=== PATIENT | female | born 1990 | race Caucasian/White ===

== ENCOUNTER 2023-11-20 08:46 | Outpatient (REF) | payer OTHER, SELFPAY ==
[2023-11-20 09:04] LABS: MANUAL DIFF FLAG NO
[2023-11-20 09:37] LABS: Basophils Absolute Auto 0.1 X10*3/uL (0.0-0.2); Basophils Percent Auto 1.1 % (0-2); Eosinophils Absolute Auto 0.1 X10*3/uL (0.0-0.4); Eosinophils Percent Auto 0.9 % (0-4); Hematocrit 43.1 % (37.0-47.0); Hemoglobin 14.8 g/dl (12.0-16.0); Imm Gran Abs Auto 0.02 X10*3/uL (0.00-0.03); Imm Gran Pct Auto 0.4 % (0.0-0.4); Lymphocytes Absolute Auto 2.3 X10*3/uL (1.2-4.9); Lymphocytes Percent Auto 41.3 % (20-40); Mean Corpuscular HGB Conc 34.3 g/dl (31.0-35.0); Mean Corpuscular Hemoglobin 30.1 pg (27.0-33.0); Mean Corpuscular Volume 87.8 fL (80.0-98.0); Monocytes Absolute Auto 0.5 X10*3/uL (0.1-1.2); Monocytes Percent Auto 8.5 % (2-11); Neutrophils Absolute Auto 2.6 x10*3/uL (2.0-8.3); Neutrophils Percent Auto 47.8 % (45-73); Platelet Count 316 X10*3/uL (160-400); Red Blood Count 4.91 X10*6/uL (4.20-5.50); Red Cell Distribution Width 12.8 % (11.0-16.0); White Blood Count 5.5 X10*3/uL (4.8-10.8)
[2023-11-20 09:38] LABS: Estimated Average Glucose 88 mg/dL; Hemoglobin A1c % 4.7 % (<6.0)
[2023-11-20 10:01] LABS: Alanine Aminotransferase 15 U/L (0-31); Albumin Level 4.2 g/dL (3.5-5.0); Alkaline Phosphatase 34 U/L (39-117); Anion Gap 12 (12-20); Aspartate Amino Transferase 19 U/L (5-31); Bilirubin Total 0.7 mg/dL (0.0-1.0); Blood Urea Nitrogen 8 mg/dL (9-16); Calcium 9.1 mg/dL (8.4-10.2); Carbon Dioxide 26 mmol/L (22-29); Chloride 108 mmol/L (96-108); Estimated Glomerular Filt Rate > 60; Glucose Fasting 94 mg/dL (60-99); Potassium 3.5 mmol/L (3.3-5.1); Sodium 142 mmol/L (135-145); Total Protein 6.8 g/dL (6.5-8.0)
[2023-11-20 10:19] LABS: Free T4 (Free Thyroxine) 1.05 ng/dL (0.71-1.85); Thyroid Stimulating Hormone 0.88 uIU/mL (0.32-4.0); Vitamin D 25-OH Total 30.5 ng/mL (>30)
[2023-11-20 10:23] LABS: Vitamin B12 308 pg/mL (200-900)
== END 2023-11-20 08:47 | disposition home or self-care (01) ==
LOC: HO.LAB 08:46
PROVIDERS: PCP Internal Medicine; Visit Provider Psychiatry & Neurology Psychiatry
DX: F33.1 Major depressive disorder, recurrent, moderate (principal); F41.9 Anxiety disorder, unspecified; F90.9 Attention-deficit hyperactivity disorder, unspecified type
CPT/HCPCS: 36415; 80053; 82306; 82607; 83036; 84439; 84443; 85025

== ENCOUNTER → 2023-11-24 11:45 | Outpatient (BNV) | payer OTHER, SELFPAY | PROVIDERS: Visit Provider Psychiatry & Neurology Psychiatry | DX: F34.0 Cyclothymic disorder (principal); F90.2 Attention-deficit hyperactivity disorder, combined type; F43.10 Post-traumatic stress disorder, unspecified; F19.10 Other psychoactive substance abuse, uncomplicated | CPT/HCPCS: 90792; 99213; 99214 ==

== ENCOUNTER 2023-11-27 12:30 | Outpatient (RCR) | payer OTHER, SELFPAY ==
[2023-11-13 10:55] VITALS: BMI 21.1
[2023-11-13 10:56] VITALS: BP 119/85; PULSE 93; TEMP 37.2
--- NOTE | 2023-11-13 11:51 | PC.ADMIT ---
Patient is a 33 year old female who is in a polyamorous relationship. She was referred to [facility] by crisis d/t increased depression with SI, non stop screaming. 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 Per records patient's daughter also had a seizure at the time. Patient is alert and oriented x4. Appears somewhat restless, she is cooperative. She presented with depressed mood and anxious affect. Speech somewhat pressured. She stated she forgot to take her Vyvanse this morning thus somewhat disorganized in thought some difficulty staying on one topic but is re-directable. Patient denied SI currently. She was given a copy of her safety plan if needed. Medications reconciled with patient and patient's pharmacy. She reports taking her medications as prescribed with the exception of forgetting to take Vyvanse this morning. She reports drinking alcohol having 2 sometimes 3 drinks weekly. Patient is currently unemployed. 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 She has plans on starting new [employer] job December 11, 2023. This fall my daughter is going back to pre-school and am looking to going back to teaching. 

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
--- NOTE | 2023-11-16 18:20 | HO.PHP ---
Client's case has been opened and reviewed in treatment team.
--- NOTE | 2023-11-24 23:48 | HO.PHPPROGNO ---
Subjective Subjective Date of Service: 11/24/23 Reason For Visit: ADHD Interim History: Patient initially complains she has not been seen by this provider all week, but then quickly pivots to a more cheerful demeanor, says she is doing better and exclaims this medication has changed my life . She is still quite talkative and rambling and she admits she did not take her Vyvanse today. She says she runs late and sometimes forgets. She asked her to get on my case to take it everyday thinking she is required to. We discuss some parameters around taking stimulant medications, which generally work best under ideal circumstances and should be taken in the AM with food and generally avoided when ill, or sleep-deprived and when anxiety and mood are not well-managed. She agrees with this sentiment as she is feeling more stable since taking the ABilify and says she is not noticing any rebound irritabliity or anxiety with taking the Vyvanse as she had previously noticed. She did notice a significant decrease in her tolerance to alcohol after having one drink on an evening last week and was wondering if it was an interaciton with the ABlify or Zoloft. She had not taken either medication in over 24 hours, however she did take her Vyvanse the morning and I suspect this might have affected her tolerance. She is planning to drink for a get together on [facility] and agrees to avoid taking any Vyvanse on that day or the following day. She does not find hydroxyzine to be helpful to use for anxiety as it is too sedating. Even taking it at night makes her feel groggy in the morning without keeping her asleep at night and is concerned a further increase may make it too difficult to function in the AM. Complaints of constipation may be related to hydroxyzine as well as a stimulant, however patient insists the Vyvanse helps them stay regular. Medication Compliance: Yes Side effects from medications: No Attending Groups: Yes Review of Systems Acute medical concerns: No Mental Status Exam Mental Status Exam Patient Appearance: Appropriate and Unkempt Patient Orientation: Person and Time Level of Consciousness: Awake Patient Behavior: Talkative, Hyperactive and Cooperative Mood Description: Cheerful ( doing better ) and Anxious Affect Description: Expansive Patient Cognition Impaired: No Ability to Follow Directions: Good Speech Pattern: Appropriate, Spontaneous Speech, Rambling and Animated Memory Description: Intact Hallucinations: None Delusions: Not Present Thought Process: Intact and Distracted Thought Content: positive for Intact Judgement: Fair Diagnostics Vital Signs (24Hr): BMI result Body Mass Index 21.1 Assessment & Plan Assessment & Plan (1) MDD (major depressive disorder), recurrent episode, moderate: Status: Acute Code(s): F33.1 - Major depressive disorder, recurrent, moderate (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 Assessment and Plan: likely related to emotional dysregulation 2/t ADHD r/o BPII rapid cycling vs unstable personality development (3) Attention deficit hyperactivity disorder, combined type: Status: Acute Code(s): F90.2 - Attention-deficit hyperactivity disorder, combined type (4) Complex posttraumatic stress disorder: Status: Acute Code(s): F43.10 - Post-traumatic stress disorder, unspecified (5) Anxiety disorder: Qualifiers: Anxiety disorder type: other mixed anxiety disorder Qualified Code(s): F41.3 - Other mixed anxiety disorders Status: Acute Code(s): F41.9 - Anxiety disorder, unspecified Plan increase Abilify to 3.5 mg qd start Intuniv 1 mg daily in mid-afternoon (when Vyvanse is wearing off) start gabapentin 300 mg qhs PRN sleep hold hydroxyzine continue Vyvanse 30 mg qAM continue Zoloft 50 mg qd continue other mediations: BCP recent lab work reviewed with patient vitamin D insufficiency - may correct with diet/sunshine or may choose to take vitamin D3 5000 IU daily for next 1-2 months continue to monitor Patient educated on: diagnosis, medication risk/benefits and substance abuse Informed Consent: understands Reason for contiued partial hosp. stay Substantial Risk for: rapid decompensation and med/psych decompensation Certification I certify that partial hospital treatment is medically necessary due to the symptoms and problems resulting from the patient's mental illness and the failure to treat the patient at the partial hospital level of care would likely result in the patient requiring inpatient psychiatric care which could not be prevented at a less intensive level of care. Total time managing care of this patient today __30__ minutes. Discharge Plan Discharge Attending provider: Jewell Broussard Medications: New aripiprazole 2 mg tablet 2 mg PO BEDTIME Qty: 30 0RF aripiprazole 5 mg tablet 5 mg PO DAILY Qty: 30 0RF guanfacine 1 mg tablet extended release 24 hr 1 - 2 mg PO DAILY Qty: 20 0RF gabapentin 300 mg capsule 300 mg PO BEDTIME PRN (Reason: sleep) Qty: 14 0RF cholecalciferol (vitamin D3) [Vitamin D3] 125 mcg (5,000 unit) tablet 125 mcg PO DAILY Qty: 30 0RF Continued norethindrone ac-eth estradiol [09/30 ()] 1-20 mg-mcg tablet 1 tab PO DAILY sertraline 50 mg tablet 50 mg PO DAILY Patient Comments: TAKE 1/2 BY MOUTH DAILY FOR 1 WEEK THEN TAKE 1 TAB BY MOUTH DAILY lisdexamfetamine [Vyvanse] 30 mg capsule 30 mg PO QAM No Action hydroxyzine HCl 25 mg Tablet 25 mg PO BID PRN (Reason: Anxiety)
--- NOTE | 2023-11-27 20:59 | HO.PHPPROGNO ---
Subjective Subjective Date of Service: 11/27/23 Reason For Visit: ADHD Interim History: Patient seen for follow-up, anticipating discharge at the end of program today.? I'm doing good, it's been complicated with my , but we are working on things...I've been able to use coping skills . Reports no acute issues or concerns. Medication compliant, medications well-tolerated. Denies any adverse effects.? I dont get tired on the guanfacine with the Vyvanse . Mood is stable.? Denies any hopelessness or SI. Denies thoughts of harming self or others at this time. Denies any aggressive ideation or HI. Denies any paranoia or AH or VH. Sleep, appetite, energy stable. Medication Compliance: Yes Side effects from medications: No Attending Groups: Yes Review of Systems Acute medical concerns: No Mental Status Exam Mental Status Exam Patient Appearance: Appropriate and Unkempt Patient Orientation: Person, Place, Time and Situation Level of Consciousness: Awake Patient Behavior: Talkative, Hyperactive and Cooperative Mood Description: Cheerful ( doing better ) and Anxious Affect Description: Expansive Patient Cognition Impaired: No Ability to Follow Directions: Good Speech Pattern: Clear, Appropriate, Spontaneous Speech, Rambling, Excessive and Animated Memory Description: Intact Diagnostics Vital Signs (24Hr): BMI result Body Mass Index 21.1 Assessment & Plan Assessment & Plan (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 (2) Attention deficit hyperactivity disorder, combined type: Status: Acute Code(s): F90.2 - Attention-deficit hyperactivity disorder, combined type (3) Complex posttraumatic stress disorder: Status: Acute Code(s): F43.10 - Post-traumatic stress disorder, unspecified (4) Polysubstance abuse: Status: Acute Code(s): F19.10 - Other psychoactive substance abuse, uncomplicated Assessment and Plan: regular cannabis use, intermittent cocaine use Plan Discharge from [facility] continue regular medications will defer further medication management to outpatient provider Refills sent to pharmacy Patient educated on: diagnosis, medication risk/benefits and substance abuse Informed Consent: understands Reason for contiued partial hosp. stay Substantial Risk for: stable for discharge Certification I certify that partial hospital treatment is medically necessary due to the symptoms and problems resulting from the patient's mental illness and the failure to treat the patient at the partial hospital level of care would likely result in the patient requiring inpatient psychiatric care which could not be prevented at a less intensive level of care. Telehealth Telehealth Location of provider rendering services: other (private office) Location of patient: other ([facility] Patient Identification confirmed using: Name, : Yes Telehealth method: video Patient verbally consented to treatment: Yes Total time managing care of this patient today __30__ minutes. Discharge Plan Discharge Attending provider: Jewell Broussard Medications: New aripiprazole 2 mg tablet 2 mg PO BEDTIME Qty: 30 0RF aripiprazole 5 mg tablet 5 mg PO DAILY Qty: 30 0RF cholecalciferol (vitamin D3) [Vitamin D3] 125 mcg (5,000 unit) tablet 125 mcg PO DAILY Qty: 30 0RF Continued norethindrone ac-eth estradiol [09/30 ()] 1-20 mg-mcg tablet 1 tab PO DAILY sertraline 50 mg tablet 50 mg PO DAILY Patient Comments: TAKE 1/2 BY MOUTH DAILY FOR 1 WEEK THEN TAKE 1 TAB BY MOUTH DAILY lisdexamfetamine [Vyvanse] 30 mg capsule 30 mg PO QAM Changed gabapentin 300 mg capsule 300 - 600 mg PO BEDTIME PRN (Reason: sleep) Qty: 30 0RF guanfacine 1 mg tablet extended release 24 hr 1 mg PO BID Qty: 40 0RF No Action hydroxyzine HCl 25 mg Tablet 25 mg PO BID PRN (Reason: Anxiety) Stand Alone Forms: Patient Portal Discharge page Patient Education: Depression (DC) Print Language: Nepali
== END 2023-11-27 23:59 | disposition home or self-care (01) ==
LOC: HO.PHPA 12:30
PROVIDERS: Visit Provider Psychiatry & Neurology Psychiatry
DX: F33.1 Major depressive disorder, recurrent, moderate (principal); F34.0 Cyclothymic disorder; F90.2 Attention-deficit hyperactivity disorder, combined type; F43.10 Post-traumatic stress disorder, unspecified; F41.3 Other mixed anxiety disorders; F90.9 Attention-deficit hyperactivity disorder, unspecified type; Z79.899 Other long term (current) drug therapy
CPT/HCPCS: 90791; 90853

== ENCOUNTER → 2025-07-28 08:06 | Outpatient (REF) | payer OTHER, SELFPAY ==
[2025-07-28 08:31] LABS: MANUAL DIFF FLAG NO
--- NOTE | 2025-07-28 08:35 | ECG_ITS ---
Test Reason : QTC CHECK Blood Pressure : */* mmHG Vent. Rate : 67 BPM Atrial Rate : 67 BPM P-R Int : 120 ms QRS Dur : 86 ms QT Int : 404 ms P-R-T Axes : 68 72 56 degrees QTcB Int : 426 ms Normal sinus rhythm Normal ECG No previous ECGs available Referred By: Jewell Broussard Electronically Signed By: ROBBIE GONZALES
[2025-07-28 09:14] LABS: Hematocrit 39.1 % (37.0-47.0); Hemoglobin 12.8 g/dl (12.0-16.0); Imm Gran Abs Auto 0.01 X10*3/uL (0.00-0.03); Imm Gran Pct Auto 0.2 % (0.0-0.4); Lymphocytes Absolute Auto 2.1 X10*3/uL (1.2-4.9); Mean Corpuscular HGB Conc 32.7 g/dl (31.0-35.0); Mean Corpuscular Hemoglobin 29.8 pg (27.0-33.0); Mean Corpuscular Volume 91.1 fL (80.0-98.0); NRBC Abs Auto 0.000 X10*3/uL (0.0-0.012); NRBC Pct Auto 0.0 /100WBC (0.0-0.2); Platelet Count 239 X10*3/uL (160-400); Red Blood Count 4.29 X10*6/uL (4.20-5.50); White Blood Count 4.8 X10*3/uL (4.8-10.8)
[2025-07-28 09:40] LABS: Parathyroid Hormone Intact 63.7 pg/mL (8.7-77.1)
[2025-07-28 09:50] LABS: Appearance Urine Clear; Glucose Urine UA Negative (Negative); PH 6.5 (5.0-9.0); Specific Gravity - Urine 1.025 (1.005-1.025); UMIC TRIGGER UA YES
[2025-07-28 09:50] LABS: Alanine Aminotransferase 14 U/L (0-31); Albumin Level 4.0 g/dL (3.5-5.0); Alkaline Phosphatase 37 U/L (39-117); Anion Gap 11 (12-20); Aspartate Amino Transferase 19 U/L (5-31); Blood Urea Nitrogen 10 mg/dL (9-16); Calcium 8.4 mg/dL (8.4-10.2); Carbon Dioxide 25 mmol/L (22-29); Chloride 107 mmol/L (96-108); Cholesterol 148 mg/dL (<200); Estimated Glomerular Filt Rate > 60; HDL Cholesterol 45 mg/dL (>40); Iron 141 mcg/dL (30-160); Magnesium 2.1 mg/dL (1.6-2.6); Percent Iron Saturation 46 % (15-50); Potassium 3.6 mmol/L (3.3-5.1); Sodium 139 mmol/L (135-145); Total Iron Binding Capacity 309 mcg/dL (228-428); Total Protein 6.0 g/dL (6.5-8.0); Triglycerides 90 mg/dL (<150); Unsaturated Iron Binding 168 ug/dL
[2025-07-28 10:05] LABS: UPreg QC Valid YES
[2025-07-28 10:10] LABS: Free T4 (Free Thyroxine) 0.93 ng/dL (0.71-1.85); Thyroid Stimulating Hormone 1.40 uIU/mL (0.32-4.0)
[2025-07-28 10:14] LABS: Syphilis Screen Nonreactive (Nonreactive)
[2025-07-28 10:23] LABS: Folate 9.6 ng/mL (> or = 4.0); Vitamin B12 247 pg/mL (200-900)
== END ==
LOC: HO.CARD 08:06
PROVIDERS: Visit Provider Psychiatry & Neurology Psychiatry
DX: F14.10 Cocaine abuse, uncomplicated (principal); F39 Unspecified mood [affective] disorder; R94.31 Abnormal electrocardiogram [ECG] [EKG]; Z13.1 Encounter for screening for diabetes mellitus; Z13.0 Encounter for screening for diseases of the blood and blood-forming organs and certain disorders involving the immune mechanism; Z13.21 Encounter for screening for nutritional disorder
CPT/HCPCS: 36415; 80053; 80061; 81001; 81025; 82306; 82550; 82607; 82746; 83036; 83090; 83540; 83735; 83970; 84100; 84425; 84439; 84443; 85025; 85652; 86780; 93005

== ENCOUNTER → 2025-07-28 08:35 | Outpatient (BNV) | payer OTHER, SELFPAY | PROVIDERS: Visit Provider Internal Medicine | DX: Z13.6 Encounter for screening for cardiovascular disorders (principal) | CPT/HCPCS: 93010 ==

== ENCOUNTER 2025-08-12 09:30 | Outpatient (RCR) | payer OTHER, SELFPAY ==
[2025-07-24 13:22] VITALS: BMI 24.6
[2025-07-24 13:23] VITALS: BP 120/64; PULSE 80; TEMP 37.7
--- NOTE | 2025-07-24 15:12 | HO.PHP ---
Rosa's case was opened during weekly treatment team meeting
--- NOTE | 2025-07-24 15:29 | PC.ADMIT ---
Patient is a 35 year old female who was referred to [facility] secondary to depression and anxiety sxs. Patient is currently on a ASCENCION from work to work on her mental health. Patient stated she has been on a leave of absence from work since June 21, 2025. Tentative start date is August 11, 2025. 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 Patient reports she is struggling with cocaine use. She reports using 1/2 an eight ball once a month for two weeks at a time. Patient would like to cut down her use and be able to use it recreationally as she has done in the past. Patient stated she is not going to use cocaine for now. Reports last use a week ago. Patient is going to attend [facility] groups for more support. Patient also is on prescription Vyvanse and takes Adderall PRN. Patient given education about the dangers of mixing cocaine with prescription medications including having a heart attack and . Dr. Doty is aware. Patient identified her supports stating, , best friend Eloina, ex Danae, mom, sisters, my boss, my co-worker. Patient is alert and oriented x4. She is calm and cooperative. She presented with depressed mood and anxious affect. She denied SI. She was given copy of her safety plan if needed. Medications updated with patient and patient's pharmacy. She reports taking medication as prescribed.
--- NOTE | 2025-07-25 10:09 | P.HPPSP_ITS ---
[facility] Date of Service: 07/24/25 Chief Complaint: depression Sources of Information: patient interviewed, chart reviewed and crisis/core team assessment reviewed HPI Narrative: This is a 35 year old female with history of depression, anxiety, ADHD, PSA, who was self-referred to [facility] due worsening symptoms in the context of psychosocial stressors including interpersonal dynamics issues related to her marriage and additional challenges of being part of a polyamorous relationship. I broke up with our girlfriend but my is still dating her . She lives at home with her and daughter. She reports that due to these stressors her cocaine use has gotten out of control in the past few months. I used to use in moderation on occasion, now I'm struggling with addiction to cocaine and marijuana, using more often than she intends. Endorses intense cravings. Last use 1 week ago, mostly because her dispenses it to her. She is known to [facility] from a prior admission in Sep 2024. She reports having on and off depression since that time she ultimately came off the Zoloft by March and was crashing by May at which time Abilify was stopped. By June she was struggling especially with SI thoughts. She started herself back on the Abilify a week and a half ago at 5 mg. Mood has been swinging been agitated/exictable to low/depressed/isolating. Sleep is variable, but denies any extended periods of insomnia. APpetite had been low due to cocaine use. She denies any hopelessness or SI. Denies any issues with irritability, aggressive ideation or HI. No AH or VH. Past Psychiatric History: [facility] x1: 09/2024 to [facility] No hx of IP, detox admissions Reports hx of 2 remote suicidal breakdowns at age 14, had a plan but denies making any attempts at ending her life (per initial assessment, did reports having had a hx of SI in the past with a plan in 2016, but did not follow through. She also noted 2 instances of SI this past year) Reports hx of dx ADHD since teens She currently has outpatient treaters: therapist, psych provider, and PCP. Previous trials: include Wellbutrin as a kid. 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 She and her partner have been together for 14 yrs, for 10 yrs Currently in polyamorous relationship with her , and a female partner for the past year She has been exploring her sexual orientation as a result of this new relationship Born and raised in [place], raised Rastafarian, moved to [place] with her family and eventually graduated HS Completed college. 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 Not currently employed for past 4 months Substance History: Regular cannabis use, sporadic cocaine use - a few times (last use CARLOS) Trauma History: endorses vague hx Diagnostics Vital Signs (24Hr): Vital Signs - 24 hr 07/24/25 13:23 Temperature 99.8 F Pulse Rate 80 Blood Pressure 120/64 BMI result Body Mass Index 24.6 Meds/Allergies Meds Home Medications ?Medication ?Instructions ?Recorded ?Confirmed ?Type norethindrone acetate 1 mg-ethinyl 1 tab PO DAILY 02/0107/24/25 History estradiol 20 mcg tablet (Junel) sertraline 100 mg tablet 100 mg PO QAM 07/24/2507/24 History Allergies Allergies Allergy/AdvReac Type Severity Reaction Status Date / Time No Known Allergies Allergy Verified 11/13/23 10:53 Mental Status Exam Mental Status Exam Narrative: Alert, oriented, in no acute distress. Calm, cooperative, engaged. No psycho motor agitation or neurovegetative retardation. Eye contact maintained. Mood depressed, affect constricted. Speech normal. Thought process linear, coherent. Thought content related to stressors, transient hopelessness, denies SI or HI. No paranoia or delusional content elicited. No evidence of psychosis. Insight and judgment - fair but adequate. Level of Consciousness: Awake Patient Behavior: Talkative, Hyperactive and Cooperative Mood Description: Cheerful ( doing better ) and Anxious Affect Description: Expansive Patient Cognition Impaired: No Ability to Follow Directions: Good Speech Pattern: Clear, Appropriate, Spontaneous Speech, Rambling, Excessive and Animated Memory Description: Intact Hallucinations: None Delusions: Not Present Thought Process: Racing and Distracted Thought Content: positive for Circumstantial, positive for Preoccupation and positive for Logical Abnormal Motor Activity Signs and Symptoms: Hyperactivity Judgement: Fair Telehealth Telehealth Location of provider rendering services: other (private office) Location of patient: other ([facility]) Patient Identification confirmed using: Name, : Yes Telehealth method: video Patient verbally consented to treatment: Yes Assessment & Plan Assessment & Plan (1) Other specified episodic mood disorder: Status: Acute Code(s): F39 - Unspecified mood [affective] disorder Assessment and Plan: r/o SIMD r/o BIIPD (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 (3) Complex posttraumatic stress disorder: Status: Acute Code(s): F43.10 - Post-traumatic stress disorder, unspecified (4) Attention deficit hyperactivity disorder, combined type: Status: Acute Code(s): F90.2 - Attention-deficit hyperactivity disorder, combined type (5) Polysubstance abuse: Status: Acute Code(s): F19.10 - Other psychoactive substance abuse, uncomplicated Assessment and Plan: regular cannabis use, intermittent cocaine use Plan Admit to [facility] VS reviewed on admission: afebrile, BP 120/64 ; 80 bpm increase ABilify to 7-7.5 mg qd start clonidine 0.1 mg QHS for sleep (may consider increasing to BID vs keeping as QHS and increasing guanfacine in AM) continue other regular medications for now Routine lab work as indicated EKG, routine for baseline QTc for medication considerations as indicated UDS as indicated MassPat reviewed Continue to monitor as per protocol Patient educated on: diagnosis, medication risk/benefits and substance abuse Informed Consent: understands Reason for continued partial hosp. stay Substantial Risk for: inability to function, rapid decompensation and med/psych decompensation Certification I certify that partial hospital treatment is medically necessary due to the symptoms and problems resulting from the patient's mental illness and the failure to treat the patient at the partial hospital level of care would likely result in the patient requiring inpatient psychiatric care which could not be prevented at a less intensive level of care. Time Spent With Patient Time: Total time managing care of this patient today __90__ minutes.
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
--- NOTE | 2025-07-30 14:36 | HO.PHP ---
Research And Development Manager met with Jacklyn to check in per her request- Jacklyn reported that she was struggling with cravings surrounding cocaine use and wanted to check in with staff due to being cognizant that she could trigger her peers in group. Jacklyn reported that she wanted to work on her triggers. Research And Development Manager helped to create a plan for her to resist her triggers.
--- NOTE | 2025-07-31 13:18 | PC.NURSE ---
I met with patient to support her in obtaining a new PCP. Patient stated she already has an appointment in 2025 with a new PCP and does not want to look for anyone else.
--- NOTE | 2025-08-06 20:54 | HO.PHPPROGNO ---
Subjective Subjective Date of Service: 08/05/25 Reason For Visit: depression Interim History: Patient seen for follow-up. Complains of racing thoughts and shutting down under stress. COgnitive anxiety more problematic than somatic anxiety. Sleep still difficult, more inclined to stay up and ruminate. Clonidine helping with anxiety more than it helps with sleep and would like to take this during the day. Has trialed trazodone, gabapentin and risperidone for sleep Presents as calmer, but talkative when engaged. No pressured speech. No manic or hypomanic behaviors. Denies any SIB/SI thoughts. Requesting FMLA ppwrk through 08/29 Medication Compliance: Yes Side effects from medications: No Attending Groups: Yes Review of Systems Acute medical concerns: No Mental Status Exam Mental Status Exam Narrative: Alert, oriented, in no acute distress. Calm, cooperative, engaged. No psychomotor agitation or neurovegetative retardation. Eye contact maintained. Mood depressed, labile, irritable, affect reactive, no lability noted. Speech normal. Thought process linear, coherent. Thought content related to stressors, transient hopelessness, denies SI or HI. No paranoia or delusional content elicited. No evidence of psychosis. Insight and judgment - fair but adequate. Patient Appearance: Appropriate and Unkempt Patient Orientation: Person and Time Level of Consciousness: Awake Patient Behavior: Talkative and Cooperative Mood Description: Anxious and Labile Affect Description: Expansive Patient Cognition Impaired: No Ability to Follow Directions: Good Speech Pattern: Appropriate, Spontaneous Speech, Rambling and Animated Memory Description: Intact Hallucinations: None Delusions: Not Present Thought Process: Intact and Distracted Thought Content: positive for Intact Judgement: Fair 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 Assessment and Plan: likely related to emotional dysregulation 2/t ADHD r/o BPII rapid cycling vs unstable personality development (3) Attention deficit hyperactivity disorder, combined type: Status: Acute Code(s): F90.2 - Attention-deficit hyperactivity disorder, combined type (4) Complex posttraumatic stress disorder: Status: Acute Code(s): F43.10 - Post-traumatic stress disorder, unspecified (5) Anxiety disorder: Qualifiers: Anxiety disorder type: other mixed anxiety disorder Qualified Code(s): F41.3 - Other mixed anxiety disorders Status: Acute Code(s): F41.9 - Anxiety disorder, unspecified (6) Polysubstance abuse: Status: Acute Code(s): F19.10 - Other psychoactive substance abuse, uncomplicated Plan continue PHP may take clonidine at 0.1 and up to 0.2 mg if needed for sleep (aware to keep guanfacine to daytime) increase Abilify from 7 mg/d to 10 mg/d (split 10 mg BID) may take ABilify 2 mg qd prn agitation increase clonidine 0.1 mg to BID (and will utilize as PRN for anxiety up to twice during the day, feels it works better than guanfacine) instead for sleep, will start Serouqel 25 mg qhs prn sleep discontinue Intuniv 1 mg daily in mid-afternoon (when Vyvanse is wearing off) continue Vyvanse 40 mg qAM continue Zoloft 100 mg qd continue other mediations: BCP recent lab work reviewed with patient Patient educated on: diagnosis, medication risk/benefits and substance abuse Informed Consent: understands Reason for contiued partial hosp. stay Substantial Risk for: rapid decompensation and med/psych decompensation Certification I certify that partial hospital treatment is medically necessary due to the symptoms and problems resulting from the patient's mental illness and the failure to treat the patient at the partial hospital level of care would likely result in the patient requiring inpatient psychiatric care which could not be prevented at a less intensive level of care. Total time managing care of this patient today ____ minutes. Discharge Plan Discharge Attending provider: Jewell Broussard Medications: New clonidine HCl 0.1 mg tablet 0.1 mg PO BID PRN (Reason: racing heart, sleep) Qty: 20 0RF thiamine HCl (vitamin B1) 100 mg capsule 100 mg PO DAILY Qty: 30 2RF mecobalamin (vitamin B12) 1,000 mcg tablet,chewable 1,000 mcg PO DAILY Qty: 30 2RF cholecalciferol (vitamin D3) [Vitamin D3] 125 mcg (5,000 unit) tablet 125 mcg PO DAILY Qty: 30 2RF lisdexamfetamine 40 mg capsule 40 mg PO QAM Qty: 10 0RF Rx Instructions: Partial Fill upon patient request. Continued norethindrone ac-eth estradiol [Junel 09/30 (21)] 1-20 mg-mcg tablet 1 tab PO DAILY sertraline 100 mg tablet 100 mg PO QAM Changed quetiapine 25 mg tablet See Rx Instructions .ROUTE .COMPLEX Qty: 30 0RF Rx Instructions: take 3-4 tablets po QHS PRN insomnia; take 1/2-1 tablet po daily PRN anxiety/agitation aripiprazole 10 mg tablet 10 mg PO QPM Qty: 30 0RF aripiprazole 2 mg tablet 2 mg PO DAILY PRN (Reason: agitation/mood stability) Qty: 30 0RF Discontinued guanfacine 1 mg tablet extended release 24 hr 1 mg PO BID Qty: 40 0RF dextroamphetamine-amphetamine [Adderall] 5 mg tablet 1 tab PO DAILY PRN (Reason: ADHD) Rx Instructions: Last filled 06/20/25 #30. lisdexamfetamine [Vyvanse] 40 mg capsule 40 mg PO QAM Rx Instructions: Last filled 07/14/25 Stand Alone Forms: Patient Portal Discharge page Patient Education: Cocaine Use Disorder (ED), ADHD in Adults (DC), Bipolar Disorder (ED), Vitamin B12 Deficiency (ED) Print Language: Djiboutian
--- NOTE | 2025-08-12 20:20 | P.PNPSP_ITS ---
Subjective Subjective Date of Service: 08/12/25 Reason For Visit: depression Interim History: Patient seen for follow-up, anticipating discharge at the end of program today.? Seroquel 50 mg has reportedly been helping with falling asleep faster and staying asleep for 2-3 hours at a time, denies any adverse effects and is agreeable to increase dose to 75-100 mg for sleep. has been locking up the cocaine paces it for me . Has been trying to use as per harm reduction plan. Used Monday as planned, but used Monday unplanned. FEels less fixated on using so doing a lot better . Abilify 5 mg BID. She is still prescribed stimulant by outpatient provider. Reports no acute issues or concerns. Medication compliant, medications well- tolerated. Denies any adverse effects.? Mood is stable.? Denies any hopelessness or SI. Denies thoughts of harming self or others at this time. Denies any aggressive ideation or HI. Denies any paranoia or AH or VH. Sleep, appetite, energy stable. Mental Status Exam Mental Status Exam Narrative: Alert, oriented, in no acute distress. Calm, cooperative. Mood stable, affect appropriate. Speech normal. Thought process linear, coherent, more goal- directed. Thought content related to stressors, future-oriented, denies any helplessness, hopelessness or SI.? No aggressive ideation or HI. No paranoia or delusional content elicited. No evidence of psychosis. Insight and judgment fair-good. 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 Assessment and Plan: likely related to emotional dysregulation 2/t ADHD r/o BPII rapid cycling vs unstable personality development (3) Attention deficit hyperactivity disorder, combined type: Status: Acute Code(s): F90.2 - Attention-deficit hyperactivity disorder, combined type (4) Complex posttraumatic stress disorder: Status: Acute Code(s): F43.10 - Post-traumatic stress disorder, unspecified (5) Anxiety disorder: Qualifiers: Anxiety disorder type: other mixed anxiety disorder Qualified Code(s): F41.3 - Other mixed anxiety disorders Status: Acute Code(s): F41.9 - Anxiety disorder, unspecified (6) Polysubstance abuse: Status: Acute Code(s): F19.10 - Other psychoactive substance abuse, uncomplicated Plan Discharge from [facility] Continue regular medications? Refills sent to pharmacy Will defer further medication management to outpatient provider *Safety plan reviewed *Discharge diagnoses, treatment course, discharge plan have been reviewed with patient (including medication regime, medication management, potential side effects) as well as treatment rationale were also revisited *Discharge paperwork signed and given to patient, copy sent for scanning to chart Patient educated on: diagnosis, medication risk/benefits and substance abuse Informed Consent: understands Reason for contiued partial hosp. stay Substantial Risk for: stable for discharge Certification I certify that partial hospital treatment is medically necessary due to the symptoms and problems resulting from the patient's mental illness and the failure to treat the patient at the partial hospital level of care would likely result in the patient requiring inpatient psychiatric care which could not be prevented at a less intensive level of care. Total time managing care of this patient today _30___ minutes. Discharge Plan Discharge Attending provider: Jewell Broussard Medications: New clonidine HCl 0.1 mg tablet 0.1 mg PO BID PRN (Reason: racing heart, sleep) Qty: 20 0RF thiamine HCl (vitamin B1) 100 mg capsule 100 mg PO DAILY Qty: 30 2RF mecobalamin (vitamin B12) 1,000 mcg tablet,chewable 1,000 mcg PO DAILY Qty: 30 2RF cholecalciferol (vitamin D3) [Vitamin D3] 125 mcg (5,000 unit) tablet 125 mcg PO DAILY Qty: 30 2RF lisdexamfetamine 40 mg capsule 40 mg PO QAM Qty: 10 0RF Rx Instructions: Partial Fill upon patient request. Continued norethindrone ac-eth estradiol [09/30 (21)] 1-20 mg-mcg tablet 1 tab PO DAILY sertraline 100 mg tablet 100 mg PO QAM Changed quetiapine 25 mg tablet See Rx Instructions .ROUTE .COMPLEX Qty: 30 0RF Rx Instructions: take 3-4 tablets po QHS PRN insomnia; take 1/2-1 tablet po daily PRN anxiety/agitation aripiprazole 10 mg tablet 10 mg PO QPM Qty: 30 0RF aripiprazole 2 mg tablet 2 mg PO DAILY PRN (Reason: agitation/mood stability) Qty: 30 0RF Discontinued guanfacine 1 mg tablet extended release 24 hr 1 mg PO BID Qty: 40 0RF dextroamphetamine-amphetamine [Adderall] 5 mg tablet 1 tab PO DAILY PRN (Reason: ADHD) Rx Instructions: Last filled 06/20/25 #30. lisdexamfetamine [Vyvanse] 40 mg capsule 40 mg PO QAM Rx Instructions: Last filled 07/14/25 Stand Alone Forms: Patient Portal Discharge page Patient Education: Cocaine Use Disorder (ED), ADHD in Adults (DC), Bipolar Disorder (ED), Vitamin B12 Deficiency (ED) Print Language: Macedonian
== END 2025-08-12 23:59 | disposition home or self-care (01) ==
LOC: HO.PHPA 09:30
PROVIDERS: Visit Provider Psychiatry & Neurology Psychiatry
DX: F33.1 Major depressive disorder, recurrent, moderate (principal); F34.0 Cyclothymic disorder; F90.2 Attention-deficit hyperactivity disorder, combined type; F43.10 Post-traumatic stress disorder, unspecified; F41.3 Other mixed anxiety disorders; F19.10 Other psychoactive substance abuse, uncomplicated; F39 Unspecified mood [affective] disorder; Z63.0 Problems in relationship with spouse or partner; Z79.899 Other long term (current) drug therapy
CPT/HCPCS: 90791; 90853

== ENCOUNTER → 2025-08-12 09:30 | Outpatient (BNV) | payer OTHER, SELFPAY | PROVIDERS: Visit Provider Psychiatry & Neurology Psychiatry | DX: F33.1 Major depressive disorder, recurrent, moderate (principal); F34.0 Cyclothymic disorder; F90.2 Attention-deficit hyperactivity disorder, combined type; F43.10 Post-traumatic stress disorder, unspecified; F41.3 Other mixed anxiety disorders; F19.10 Other psychoactive substance abuse, uncomplicated; F39 Unspecified mood [affective] disorder | CPT/HCPCS: 90792; 99213; 99214 ==